=== PATIENT | male | born 1960 | race African-American/Black ===

== ENCOUNTER 2022-02-01 09:48 | Inpatient (IN) ==
[2022-02-01] MEDS ORDERED: ONDANSETRON INJ 2 MG/ML 2 ML VIAL IV STA (10:01)
[2022-02-01] MEDS ORDERED: SODIUM CHLORIDE 0.9% 1000ML 1,000 ML IV STA (10:01)
--- NOTE | 2022-02-01 10:10 | Emergency Department Note ---
Impression & Plan Diverticulitis, Abdominal pain, acute, right lower quadrant ED Provider Note NAME: GUILLERMINA [id number] ADITI AGE: 61 SEX: M : 1960 ARRIVES VIA: Walk-In INFORMANT: Patient, ED PROVIDER(S): Srinivasa Coreas DO CHIEF COMPLAINT: Abdominal pain HPI: The patient is a 61-year-old male who presented to the emergency department for an evaluation of abdominal pain. The patient states that he started having symptoms approximately 3 days ago. He did have 1 episode of loose bowel movement last evening. He denies having any black or bloody bowel moods. He states the pain initially started in his epigastric region. He states the pain is now lower in his abdomen especially on the right side. He has had no fever. He has had no trauma. He denies having any exposures to any foodborne illnesses but states he did have a sausage recently but is unsure if anyone else got sick eating. The patient has been taking his usual medications that he takes for diabetes. He does have a history of cholecystectomy but still has his appendix. He denies having any chest pain or difficulty breathing. ROS: See above HPI for pertinent positives & negatives. A total of 10 systems reviewed and were otherwise negative. PAST MEDICAL HISTORY: See Below PAST SURGICAL HISTORY: See Below FAMILY HISTORY: See Below SOCIAL HISTORY: See Below HOME MEDICATIONS: See Below ALLERGIES: See Below VITALS: See Below PHYSICAL EXAMINATION: GENERAL: The patient is awake and alert. He appears to be uncomfortable. EYES: The conjunctivae are clear. The pupils are round and reactive. EARS, NOSE, MOUTH AND THROAT: The nose is without any evidence of any deformity. NECK: The neck is nontender and supple. RESPIRATORY: Normal respiratory effort is noted there is no evidence of wheezing rhonchi or rales CARDIOVASCULAR: Regular rate and rhythm noted there no murmurs rubs or gallops normal S1 normal S2. GASTROINTESTINAL: The abdomen was soft and mildly distended. There is right lower quadrant tenderness to palpation. There is mild guarding in the right lower quadrant. MUSCULOSKELETAL/EXTREMITIES: There is no evidence of gross deformity full range of motion is noted in the hips and shoulders. SKIN: There is no obvious evidence of any rash. There are no petechiae, pallor or cyanosis noted. NEUROLOGIC: Patient is awake alert and oriented x3. MEDICAL DECISION MAKING: Patient is a 61-year-old male who presented to the emergency department for an evaluation of right lower quadrant abdominal pain. Initially I thought the patient's condition could be consistent with diverticulitis or possibly appendicitis. Further laboratory and radiographic studies were obtained. The patient was treated with IV fluids and IV pain medication. He was also given IV antibiotics for presumed diverticulitis noted on CT. I discussed the patient's condition with the on-call general surgical group as well as the on-call [facility] hospitalist group. They have agreed to evaluate the patient in the emergency department for further management and disposition. Triage Nursing notes reviewed. Prior medical records reviewed Vital Signs: reviewed and remarkable for elevated blood pressure Differential diagnosis: Appendicitis, testicular torsion, infections, diverticulitis, UTI, obstruction, mesenteric ischemia, aortic pathology, inflammatory bowel disease, renal colic, PUD, pancreatitis, biliary pathology, hernia, volvulus, constipation, as well as other pathologies. ER treatment provided: See below Diagnostics interpreted by me: ECG: EKG was obtained in the emergency department. My interpretation is normal sinus rhythm at 75 bpm. There is no ectopy. There is no acute ST segment abnormalities noted. No previous tracing was available. Cardiac Monitoring: An order was placed for continuous cardiac monitoring. The monitor shows a rate of 72 bpm with sinus rhythm Laboratory studies: As stated above and show below. Imaging studies: See below Consultation(s): I discussed this case with Jessica who is on for general surgery. I discussed this case with Ronna who is covering for the [facility] hospitalist group. Past Med/Surg History Medical History Diabetes Hyperlipidemia Hypertension Surgical History History of cholecystectomy Family History Other Family history non-contributory Social History Smoking Status: Former smoker Feels Safe at Home: Yes Allergies Allergies Allergy/AdvReac Type Severity Reaction Status Date / Time No Known Allergies Allergy Unverified 02/01/22 11:33 Home Meds Home Medications Medication Instructions Recorded Confirmed aspirin 81 mg tablet,delayed 81 mg PO DAILY 02/01/22 02/01/22 release atorvastatin 20 mg tablet 20 mg PO HS 02/01/22 02/01/22 calcium polycarbophil 625 mg 1,250 mg PO BID 02/01/22 02/01/22 tablet (Fiber-Lax) glyburide 2.5 mg tablet 2.5 mg PO BID 02/01/22 02/01/22 glyburide 5 mg tablet 5 mg PO BID 02/01/22 02/01/22 lisinopril 20 mg tablet 20 mg PO DAILY 02/01/22 02/01/22 Results & Data (ED) Vital Signs Vital Signs - 24 hr 02/01/22 09:51 02/01/22 10:30 02/01/22 11:22 Temperature 36.8 C Temperature Source Temporal Artery Scan Pulse Rate 77 75 Pulse Rate [Finger] 77 Respiratory Rate 18 18 18 Respiratory Effort / Characteristics Non-Labored Respiratory Depth Normal Blood Pressure [Right Arm] 163/102 H Blood Pressure Mean [Right Arm] 122 Blood Pressure Position [Right Arm] Semi-fowlers Pulse Oximetry 96 95 Oxygen Delivery Method Room Air Room Air Sepsis Recent Fever Within 48 Hours No Sepsis New/Unexplained Change in Mental Status No Sepsis Action Taken by Nursing No Action Required 02/01/22 13:19 02/01/22 14:36 02/01/22 15:04 Temperature Temperature Source Pulse Rate Pulse Rate [Finger] 77 73 72 Respiratory Rate 18 18 16 Respiratory Effort / Characteristics Non-Labored Respiratory Depth Normal Blood Pressure [Right Arm] 141/112 H 145/95 H 147/95 H Blood Pressure Mean [Right Arm] 121 111 112 Blood Pressure Position [Right Arm] Semi-fowlers Pulse Oximetry 95 95 97 Oxygen Delivery Method Room Air Room Air Room Air Sepsis Recent Fever Within 48 Hours Sepsis New/Unexplained Change in Mental Status Sepsis Action Taken by [facility] Medications Current Medication List: was personally reviewed by me Laboratory Data Attestation: I reviewed the patient's lab results. Result diagrams: 02/01/22 10:15 02/01/22 10:15 Lab Results 02/01/22 02/01/22 02/01/22 Range/Units 10:15 10:15 10:18 WBC 11.26 H (4.8-10.8) K/ul RBC 5.47 (4.63-6.08) M/uL Hgb 16.1 (14.0-18.0) g/dl POC Hgb 16.7 (14.0-18.0) g/dl Hct 47.6 (40.1-51.0) % POC Hct 49 (42-52) % MCV 87.0 (80.0-100.0) fL MCH 29.4 (25.0-34.0) pg MCHC 33.8 (32.0-36.0) g/dL RDW Std Deviation 38.8 (36.4-46.3) fL RDW Coeff of Isabella 12.3 (11.5-14.5) % Plt Count 239 (130-400) K/uL MPV 10.4 (9.4-12.4) fL Immature Gran % (Auto) 0.4 % Neut % (Auto) 79.9 % Lymph % (Auto) 9.9 % Gilmer % (Auto) 9.0 % Eos % (Auto) 0.5 % Baso % (Auto) 0.3 % Neut # (Auto) 9.01 H (1.4-6.5) K/uL Lymph # (Auto) 1.11 L (1.2-3.4) K/uL Gilmer # (Auto) 1.01 H (0.24-0.82) K/uL Eos # (Auto) 0.06 (0-0.50) K/uL Baso # (Auto) 0.03 (0-0.2) K/uL Immature Gran # (Auto) 0.04 H (0.00-0.02) K/uL POC Sodium 141 (135-144) mmol/L Sodium 140 (136-145) mmol/L POC Potassium 3.7 (3.3-5.0) mmol/L Potassium 3.7 (3.5-5.1) mmol/L POC Chloride 102 (101-112) mmol/L Chloride 104 (98-107) mmol/L Carbon Dioxide 28 (21-32) mmol/L POC Total CO2 27 (24-31) mmol/L Anion Gap 8 (3-11) POC Anion Gap 17.0 (16-25) mmol/L POC BUN 10 (7-18) mg/dl BUN 11 (6-23) mg/dl Creatinine 1.01 (0.6-1.4) mg/dl POC Creatinine 1.0 (0.6-1.3) mg/dl Est Cr Clr Drug Dosing 72.4 ml/min Est GFR ( Amer) 91.3 ml/min Est GFR (Non-Af Amer) 78.8 ml/min BUN/Creatinine Ratio 10.9 (10-20) Glucose 163 H (70-99(Fasting)) mg/dl POC Glucose (other) 172 H (70-99) mg/dl Calcium 9.6 (8.5-10.1) mg/dl POC Ioniz Calcium [place] 1.20 (1.12-1.32) mmol/l Total Bilirubin 0.9 (0.2-1.0) mg/dl AST 12 L (13-39) U/L ALT 10 (7-52) U/L Alkaline Phosphatase 115 H (34-104) U/L Troponin I High Sens 6.7 (0-20) pg/ml Total Protein 7.8 (6.0-8.3) gm/dl Albumin 4.4 (3.4-5.0) gm/dl Globulin 3.4 (2.5-4.0) gm/dl Albumin/Globulin Ratio 1.3 (0.9-2) Lipase 4 L (11-82) U/L Urine Color Urine Appearance (Clear) Urine pH (4.5-7.5) Ur Specific [place] (1.000-1.030) Urine Protein (Negative) Urine Glucose (UA) (Negative) Urine Ketones (Negative) Urine Blood (Negative) Urine Nitrite (Negative) Urine Bilirubin (Negative) Urine Urobilinogen (Negative) Ur Leukocyte Esterase (Negative) SARS-CoV-2, RNA, NAAT (NEGATIVE) 02/01/22 02/01/22 Range/Units 11:14 14:10 WBC (4.8-10.8) K/ul RBC (4.63-6.08) M/uL Hgb (14.0-18.0) g/dl POC Hgb (14.0-18.0) g/dl Hct (40.1-51.0) % POC Hct (42-52) % MCV (80.0-100.0) fL MCH (25.0-34.0) pg MCHC (32.0-36.0) g/dL RDW Std Deviation (36.4-46.3) fL RDW Coeff of Isabella (11.5-14.5) % Plt Count (130-400) K/uL MPV (9.4-12.4) fL Immature Gran % (Auto) % Neut % (Auto) % Lymph % (Auto) % Gilmer % (Auto) % Eos % (Auto) % Baso % (Auto) % Neut # (Auto) (1.4-6.5) K/uL Lymph # (Auto) (1.2-3.4) K/uL Gilmer # (Auto) (0.24-0.82) K/uL Eos # (Auto) (0-0.50) K/uL Baso # (Auto) (0-0.2) K/uL Immature Gran # (Auto) (0.00-0.02) K/uL POC Sodium (135-144) mmol/L Sodium (136-145) mmol/L POC Potassium (3.3-5.0) mmol/L Potassium (3.5-5.1) mmol/L POC Chloride (101-112) mmol/L Chloride (98-107) mmol/L Carbon Dioxide (21-32) mmol/L POC Total CO2 (24-31) mmol/L Anion Gap (3-11) POC Anion Gap (16-25) mmol/L POC BUN (7-18) mg/dl BUN (6-23) mg/dl Creatinine (0.6-1.4) mg/dl POC Creatinine (0.6-1.3) mg/dl Est Cr Clr Drug Dosing ml/min Est GFR ( Amer) ml/min Est GFR (Non-Af Amer) ml/min BUN/Creatinine Ratio (10-20) Glucose (70-99(Fasting)) mg/dl POC Glucose (other) (70-99) mg/dl Calcium (8.5-10.1) mg/dl POC Ioniz Calcium [place] (1.12-1.32) mmol/l Total Bilirubin (0.2-1.0) mg/dl AST (13-39) U/L ALT (7-52) U/L Alkaline Phosphatase (34-104) U/L Troponin I High Sens (0-20) pg/ml Total Protein (6.0-8.3) gm/dl Albumin (3.4-5.0) gm/dl Globulin (2.5-4.0) gm/dl Albumin/Globulin Ratio (0.9-2) Lipase (11-82) U/L Urine Color Yellow Urine Appearance Clear (Clear) Urine pH 6.0 (4.5-7.5) Ur Specific [place] > 1.045 H (1.000-1.030) Urine Protein Negative (Negative) Urine Glucose (UA) Trace H (Negative) Urine Ketones Trace H (Negative) Urine Blood Negative (Negative) Urine Nitrite Negative (Negative) Urine Bilirubin Negative (Negative) Urine Urobilinogen Negative (Negative) Ur Leukocyte Esterase Negative (Negative) SARS-CoV-2, RNA, NAAT NEGATIVE (NEGATIVE) Administered Medications Morphine Sulfate (Morphine Sulfate 4 Mg/Ml 1 Ml Carp\Vial) 4 mg IV Q15M PRN PRN Reason: Pain Stop: 02/15/22 10:00 Last Admin: 02/01/22 11:21 Dose: 4 mg Documented By: Admin: 02/01/22 10:23 Dose: 4 mg Documented By: ALIRIO Discontinued Medications Acetaminophen (Acetaminophen 1000 Mg/100 Ml Iv) 1,000 mg IV NOW STA Stop: 02/01/22 12:49 Last Admin: 02/01/22 13:20 Dose: 1,000 mg Documented By: ALIRIO Sodium Chloride (Nss 1000ml) 1,000 mls @ 999 mls/hr IV .Q1H1M STA Stop: 02/01/22 11:01 Last Infusion: 02/01/22 11:34 Dose: 0 mls/hr Documented By: Admin: 02/01/22 10:24 Dose: 999 mls/hr Documented By: ALIRIO Piperacillin Sod/Tazobactam Sod (Zosyn) 4.5 gm in 120 mls @ 240 mls/hr IV NOW ONE Stop: 02/01/22 12:15 Last Infusion: 02/01/22 12:47 Dose: 0 mls/hr Documented By: Admin: 02/01/22 12:12 Dose: 240 mls/hr Documented By: ALIRIO Ioversol (Optiray 320 100ml) 90 ml IV ONCE ONE Stop: 02/01/22 10:51 Last Admin: 02/01/22 10:41 Dose: 90 ml Documented By: DOTTIE Ondansetron HCl (Ondansetron Inj 2 Mg/Ml 2 Ml Vial) 4 mg IV NOW STA Stop: 02/01/22 10:02 Last Admin: 02/01/22 10:24 Dose: 4 mg Documented By: TRH Imaging Data Radiologist's Impression: Abdomen/Pelvis CT 02/01/22 10:01 CT abd pelvis IV con only CLINICAL HISTORY: RLQ pain. 3 days of abdominal pain. Loose bowel movement. TECHNIQUE: Helical axial images of the abdomen and pelvis were obtained and displayed. Automated dose lowering techniques and/or adjustment according to patient size were utilized for this exam. This exam was performed with intravenous contrast. CT DOSE: 376.44 mGycm COMPARISON: None available at the time of this dictation. FINDINGS: Lower chest: No acute abnormality Liver: Unremarkable. No focal lesions are seen. Gallbladder and biliary tree: Patient is status post cholecystectomy. Physiologic prominence of the biliary ducts is noted. Pancreas: Unremarkable, no focal lesions. Spleen: Unremarkable. Adrenals: Unremarkable. Kidneys and ureters: There is a cyst in the right kidney. Bladder: Unremarkable. Reproductive organs: Prostatic calcifications are seen which may represent prior hemorrhage or granulomatous disease. Bowel: Diverticulosis is seen without evidence of diverticulitis. Marked wall thickening and surrounding fat stranding is seen in the hepatic flexure in a short segment. No pneumoperitoneum is seen. There is a focal stool/air flexion protruding from the anteromedial aspect of the lesion. There are adjacent fluid density lesions which appear intraluminal. Lymph nodes Retroperitoneal: Unremarkable. Pelvic: Unremarkable. Mesenteric: Unremarkable. Peritoneum: Mild fat stranding is seen about the right upper quadrant. No kirby dence of pneumoperitoneum or discrete fluid collections. Vessels: Unremarkable. Abdominal wall: Unremarkable. Bones: Unremarkable. IMPRESSION: Hepatic flexure wall thickening and fat stranding are suggestive of acute diverticulitis without evidence of perforation. Given the degree of wall thickening, however, follow-up colonoscopy is recommended to exclude underlying carcinoma. ACT 112: Negative or not required by law. Electronically signed by: Ruy Meyer M.D. 02/01/2022 11:38 AM Discharge Plan Visit Data Chief Complaint: Abdominal Pain Stated Complaint: ABDOMINAL PAIN ED Provider: Srinivasa Coreas Discharge Problem: Diverticulitis, Abdominal pain, acute, right lower quadrant Patient Disposition: Being Evaluated by Hospitalist Forms Stand Alone Forms: My [facility] [employer] Prescriptions Prescriptions: No Action atorvastatin 20 mg Tablet 20 mg PO HS glyburide 5 mg Tablet 5 mg PO BID glyburide 2.5 mg Tablet 2.5 mg PO BID Rx Instructions: take 1 tab twice a day with 5mg for a total of 7.5mg twice per day lisinopril 20 mg Tablet 20 mg PO DAILY aspirin [Aspirin Low-Strength] 81 mg Tablet,Delayed Release (Dr/Ec) 81 mg PO DAILY calcium polycarbophil [Fiber-Lax] 625 mg Tablet 1,250 mg PO BID Referrals Referrals: Heaven LINDSEY [Primary Care Provider] -
[2022-02-01] MEDS: MoRPHine SULFATE 4 MG/ML 1 ML CARP\\VIAL IV PRN ×2 (10:23→11:21)
[2022-02-01 10:30] LABS: iSTAT Hemoglobin 16.7 g/dl (14.0-18.0); iSTAT Ionized Calcium 1.2 mmol/l (1.12-1.32); iSTAT Potassium 3.7 mmol/L (3.3-5.0)
[2022-02-01 10:32] LABS: Basophils # (auto) 0.03 K/uL (0-0.2); Basophils % (auto) 0.3 %; Eosinophils # (auto) 0.06 K/uL (0-0.50); Eosinophils % (auto) 0.5 %; Hematocrit (blood only) 47.6 % (40.1-51.0); Hemoglobin 16.1 g/dl (14.0-18.0); Immature Granulocytes # (auto) 0.04 K/uL (0.00-0.02); Immature Granulocytes % (auto) 0.4 %; Lymphocytes # (auto) 1.11 K/uL (1.2-3.4); Lymphocytes % (auto) 9.9 %; Mean Corpuscular Hemoglobin 29.4 pg (25.0-34.0); Mean Corpuscular Hgb Conc 33.8 g/dL (32.0-36.0); Mean Platelet Volume 10.4 fL (9.4-12.4); Monocytes # (auto) 1.01 K/uL (0.24-0.82); Neutrophils # (auto) 9.01 K/uL (1.4-6.5); Neutrophils % (auto) 79.9 %; Platelet Count 239 K/uL (130-400); RDW Coefficient of Variation 12.3 % (11.5-14.5); RDW Standard Deviation 38.8 fL (36.4-46.3); Red Blood Count 5.47 M/uL (4.63-6.08); White Blood Count 11.26 K/ul (4.8-10.8)
[2022-02-01] MEDS ORDERED: OPTIRAY 320 100ml IV ONE (10:50)
[2022-02-01 10:59] LABS: Troponin I High Sensitivity 6.7 pg/ml (0-20)
[2022-02-01 11:03] LABS: Albumin Globulin Ratio 1.3 (0.9-2); Albumin Level 4.4 gm/dl (3.4-5.0); BUN Creatinine Ratio 10.9 (10-20); Bilirubin,Total 0.9 mg/dl (0.2-1.0); Calcium 9.6 mg/dl (8.5-10.1); Creatinine Clr Calc Pharmacy 72.4 ml/min; Est GFR (African American) 91.3 ml/min; Est GFR (Non-African American) 78.8 ml/min; Globulin 3.4 gm/dl (2.5-4.0); Potassium 3.7 mmol/L (3.5-5.1); Total Protein 7.8 gm/dl (6.0-8.3)
--- NOTE | 2022-02-01 11:41 | CT Scan Report ---
CT abd pelvis IV con only CLINICAL HISTORY: RLQ pain. 3 days of abdominal pain. Loose bowel movement. TECHNIQUE: Helical axial images of the abdomen and pelvis were obtained and displayed. Automated dose lowering techniques and/or adjustment according to patient size were utilized for this exam. This e xam was performed with intravenous contrast. CT DOSE: 376.44 mGycm COMPARISON: None available at the time of this dictation. FINDINGS: Lower chest: No acute abnormality Liver: Unremarkable. No focal lesions are seen. Gallbladder and biliary tree: Patient is status post cholecystectomy. Physiologic prominence of the b iliary ducts is noted. Pancreas: Unremarkable, no focal lesions. Spleen: Unremarkable. Adrenals: Unremarkable. Kidneys and ureters: There is a cyst in the right kidney. Bladder: Unremarkable. Reproductive organs: Prostatic calcifications are seen which may represent prior hemorrhage or granul omatous disease. Bowel: Diverticulosis is seen without evidence of diverticulitis. Marked wall thickening and surround ing fat stranding is seen in the hepatic flexure in a short segment. No pneumoperitoneum is seen. The re is a focal stool/air flexion protruding from the anteromedial aspect of the lesion. There are karen cent fluid density lesions which appear intraluminal. Lymph nodes Retroperitoneal: Unremarkable. Pelvic: Unremarkable. Mesenteric: Unremarkable. Peritoneum: Mild fat stranding is seen about the right upper quadrant. No evidence of pneumoperitoneu m or discrete fluid collections. Vessels: Unremarkable. Abdominal wall: Unremarkable. Bones: Unremarkable. IMPRESSION: Hepatic flexure wall thickening and fat stranding are suggestive of acute diverticulitis without evid ence of perforation. Given the degree of wall thickening, however, follow-up colonoscopy is recommend ed to exclude underlying carcinoma. ACT 112: Negative or not required by law. Electronically signed by: Ruy Meyer M.D. 02/01/2022 11:38 AM
[2022-02-01] MEDS ORDERED: PIPERACILLIN/TAZOBACTAM 4.5 GM/120 ML BAG IV ONE (11:46)
--- NOTE | 2022-02-01 11:55 | History & Physical Report ---
Date of Service February 01, 2022 Assessment & Plan (1) Diverticulitis: Plan: - Elevated WBC with CT A/P showing hepatic flexure thickening and intraluminal fluid, possible phlegmon, but without evidence of bowel perforation. - Will admit for IVF and IV abx, as needed IV analgesics and antiemetics ordered. - General surgery consulted to evaluate patient in ED, recommending GI consult given concern for possible phlegmon. (2) DM2 (diabetes mellitus, type 2): Plan: - Hold glyburide, place on SSI with accucheks ACHS/q6h while NPO. - A1c in AM. (3) Hypertension: Plan: - Takes 20 mg lisinopril daily, did take today's dose. Is hypertensive 163/102, however currently with 7/10 pain. - 0.625 mg IV Vasotec Q6h prn for SBP > 160 in setting of adequately controlled pain. (4) Hyperlipidemia: Plan: - On atorvastatin 40 mg at night, hold for now due to n.p.o. status, may resume when patient tolerating p.o. intake. Plan - Med/surg OBS. - SCDs for VTE ppx. - Full Code. History of Present Illness Chief Complaint: abdominal pain, diarrhea x 2 days Primary Care Provider: CÉSAR Higgins Lakepooja Jordy Mercer is a 61-year-old male with a past medical history significant for hypertension, hyperlipidemia, and diabetes who presents today with abdominal pain. 2 days ago, he consumed spicy sausage and 2 hours later developed a knot- like pain in his upper central abdomen. Over the past 2 days, as it become more severe and has moved into his lower right abdomen. He had an episode of nonbloody, watery stool last evening and had felt very warm this morning, however denies fevers/chills, nausea, vomiting, constipation, melena, hematochezia. Pain is throbbing and worse with p.o. intake, specifically noting that it got worse after he took his blood pressure medication this morning, also worsened by IV morphine given in ED, made it feel like his abdomen was "on fire ". He had his gallbladder removed years ago, otherwise no surgeries, no history of diverticulitis or GI cancers. No one else at the alf who ate the present appears to be ill. In ED, is an elevated white blood cell count, elevated blood sugar, otherwise labs largely unremarkable. CT A/P shows thickening of the bowel at the hepatic flexure suggestive of diverticulitis. There is concern for possible phlegmon, but no evidence of pneumoperitoneum or perforation. Allergies Allergy/AdvReac Type Severity Reaction Status Date / Time No Known Allergies Allergy Unverified 02/01/22 11:33 Home Medications Medication Instructions Recorded Confirmed Type aspirin 81 mg tablet,delayed 81 mg PO DAILY 02/01/22 02/01/22 History release atorvastatin 20 mg tablet 20 mg PO HS 02/01/22 02/01/22 History calcium polycarbophil 625 mg 1,250 mg PO BID 02/01/22 02/01/22 History tablet (Fiber-Lax) glyburide 2.5 mg tablet 2.5 mg PO BID 02/01/22 02/01/22 History glyburide 5 mg tablet 5 mg PO BID 02/01/22 02/01/22 History lisinopril 20 mg tablet 20 mg PO DAILY 02/01/22 02/01/22 History Past Med/Surg History Medical History Diabetes Hyperlipidemia Hypertension Surgical History History of cholecystectomy Family History Other Family history non-contributory Social History Smoking Status: Former smoker Feels Safe at Home: Yes Review of Systems Review of Systems: Constitutional: felt very warm this AM but no objective fever/chills, weakness, fatigue, myalgias, anorexia, night sweats Eyes: No diplopia, no worsening or blurred vision ENT: normal hearing, no trouble swallowing Respiratory: No cough, sputum, dyspnea at rest or on exertion Cardiovascular: No chest pain, tightness or palpitations Abdomen: Central and right-sided abdominal pain x2 days with nonbloody diarrhea last evening; no nausea, vomiting, constipation, melena, or hematochezia : Denies dysuria, hematuria, increased urgency/frequency, urinary retention Musculoskeletal: No joint pain, calf pain, swelling Neurologic: No weakness, numbness/tingling, or balance problems Psychiatric: No anxiety or depression Skin: No rash or itch Physical Exam Physical Exam: General: awake, alert, no apparent distress Head: Normocephalic, atraumatic ENT: PERRL, EOMI, no pharyngeal exudate, mucous membranes moist Chest: Clear to auscultation, on room air, no adventitious breath sounds Cardiac: Regular rate and rhythm, no murmur, no JVD, normal peripheral pulses, good capillary refill Abdominal: Central, right-sided abdominal pain, with mild rebound pain when pushing in LUQ; NABS x4 quadrants Extremities: Normal inspection, no peripheral edema or erythema, calfs nontender to palpation Psych: Normal mood and affect Neuro: AAO x 3, strength intact bilaterally and rated 5/5, no motor deficits, speech is clear, no peripheral sensory deficits Skin: no rash or erythema Results & Data Results & Data ([facility] [place]) Vital Signs (Past 12 Hours) Vital Signs Temp Pulse Pulse Resp BP Pulse Ox O2 Del Method 02/01/22 11:22 77 18 163/102 H 95 02/01/22 10:30 75 18 96 Room Air 02/01/22 09:51 36.8 C 77 18 Room Air Laboratory Results Abnormal lab results 02/01/22 02/01/22 02/01/22 Range/Units 10:15 10:15 10:18 WBC 11.26 H (4.8-10.8) K/ul Neut # (Auto) 9.01 H (1.4-6.5) K/uL Lymph # (Auto) 1.11 L (1.2-3.4) K/uL [facility] # (Auto) 1.01 H (0.24-0.82) K/uL Immature Gran # (Auto) 0.04 H (0.00-0.02) K/uL Glucose 163 H (70-99(Fasting)) mg/dl POC Glucose (other) 172 H (70-99) mg/dl AST 12 L (13-39) U/L Alkaline Phosphatase 115 H (34-104) U/L Lipase 4 L (11-82) U/L Diagnostic Findings Abdomen/Pelvis CT 02/01/22 10:01 CT abd pelvis IV con only CLINICAL HISTORY: RLQ pain. 3 days of abdominal pain. Loose bowel movement. TECHNIQUE: Helical axial images of the abdomen and pelvis were obtained and displayed. Automated dose lowering techniques and/or adjustment according to patient size were utilized for this exam. This exam was performed with intravenous contrast. CT DOSE: 376.44 mGycm COMPARISON: None available at the time of this dictation. FINDINGS: Lower chest: No acute abnormality Liver: Unremarkable. No focal lesions are seen. Gallbladder and biliary tree: Patient is status post cholecystectomy. Physiologic prominence of the biliary ducts is noted. Pancreas: Unremarkable, no focal lesions. Spleen: Unremarkable. Adrenals: Unremarkable. Kidneys and ureters: There is a cyst in the right kidney. Bladder: Unremarkable. Reproductive organs: Prostatic calcifications are seen which may represent prior hemorrhage or granulomatous disease. Bowel: Diverticulosis is seen without evidence of diverticulitis. Marked wall thickening and surrounding fat stranding is seen in the hepatic flexure in a short segment. No pneumoperitoneum is seen. There is a focal stool/air flexion protruding from the anteromedial aspect of the lesion. There are adjacent fluid density lesions which appear intraluminal. Lymph nodes Retroperitoneal: Unremarkable. Pelvic: Unremarkable. Mesenteric: Unremarkable. Peritoneum: Mild fat stranding is seen about the right upper quadrant. No evidence of pneumoperitoneum or discrete fluid collections. Vessels: Unremarkable. Abdominal wall: Unremarkable. Bones: Unremarkable. IMPRESSION: Hepatic flexure wall thickening and fat stranding are suggestive of acute diverticulitis without evidence of perforation. Given the degree of wall thickening, however, follow-up colonoscopy is recommended to exclude underlying carcinoma. ACT 112: Negative or not required by law. Electronically signed by: Ruy Meyer M.D. 02/01/2022 11:38 AM ECG Additional Comments: Normal sinus rhythm Normal ECG When compared with ECG of 01-FEB-2022 10:23, (unconfirmed) Sinus rhythm has replaced Ectopic atrial rhythm Questionable change in QRS axis T wave inversion no longer evident in Inferior leads. Code Status & VTE Plan Code Status Full Code. Supervising Physician Co-Signing Physician Notes I personally saw and examined the patient. I verified all reed points and agree with Ronna Rojo PA-C with the following exceptions and/or additions: 61 year old male admission for 2 days of right-sided abdominal pain. No fevers or chills. Diverticulitis in hepatic flexure noted on CT with associated leukocytosis. He reports much improved pain since coming to the emergency room. O/E Right lower quadrant abdominal pain with guarding but without rebound tenderness. HS1+2, no murmurs, Chest CTAB. A/P Acute hepatic flexure diverticulitis -admission recommended by surgery. N.p.o., IV Zosyn, IV fluids. Follow-up colonoscopy in 4-6 weeks. PG Care Time/CCT Total # of Minutes Spent Total Time Spent with Patient: Total time spent is greater than 50% in coordination of care (as documented) at patient's floor/unit and/or counseling patient: Coding Level of Care Code 39529 Initial Inpt Care Lvl 2 Diagnoses Diverticulitis K57.92 DM2 (diabetes mellitus, type 2) E11.9 Hypertension I10 Hyperlipidemia E78.5
[2022-02-01] MEDS ORDERED: ACETAMINOPHEN 1000 MG/100 ML IV IV STA (12:48)
--- NOTE | 2022-02-01 12:59 | Electrocardiogram Report ---
Test Reason : Blood Pressure : / mmHG Vent. Rate : 075 BPM Atrial Rate : 075 BPM P-R Int : 164 ms QRS Dur : 080 ms QT Int : 382 ms P-R-T Axes : 059 014 033 degrees QTc Int : 426 ms Normal sinus rhythm Normal ECG When compared with ECG of 01-FEB-2022 10:23, (unconfirmed) Sinus rhythm has replaced Ectopic atrial rhythm Questionable change in QRS axis T wave inversion no longer evident in Inferior leads Confirmed by Srinivasa Tobin ([id number]) on 02/01/2022 12:59:01 PM Referred By: Confirmed By:Srinivasa Tobin
--- NOTE | 2022-02-01 13:14 | Surgery Consultation ---
Date of Consultation February 01, 2022 Assessment & Plan (1) Diverticulitis: Diverticulitis vs colitis/microperf afebrile, WBC 11,000 keep NPO, on Zosyn no indication for surgery at this time but will follow closely will need eventual colonoscopy As above. Patient feeling slightly better already. This is his first known episode. No urgent or emergent indication for surgical intervention. Keep n.p.o. and IV antibiotics. We will continue to follow along closely. History of Present Illness History of Present Illness 61 y/o diabetic male inmate developed epigastric pain 2 days ago after eating sausage sandwich. Yesterday pain increased and localized more to the right side. He ate soup and had loose stool last evening. This morning had continued pain, felt warm, and was brought to the ED for evaluation. Had lap bay in the past, colonoscopy about 10 years ago for screening. Allergies Allergy/AdvReac Type Severity Reaction Status Date / Time No Known Allergies Allergy Unverified 02/01/22 11:33 Home Medications Medication Instructions Recorded Confirmed Type aspirin 81 mg tablet,delayed 81 mg PO DAILY 02/01/22 02/01/22 History release atorvastatin 20 mg tablet 20 mg PO HS 02/01/22 02/01/22 History calcium polycarbophil 625 mg 1,250 mg PO BID 02/01/22 02/01/22 History tablet (Fiber-Lax) glyburide 2.5 mg tablet 2.5 mg PO BID 02/01/22 02/01/22 History glyburide 5 mg tablet 5 mg PO BID 02/01/22 02/01/22 History lisinopril 20 mg tablet 20 mg PO DAILY 02/01/22 02/01/22 History Patient History Medical History Diabetes Hyperlipidemia Hypertension Surgical History History of cholecystectomy Family History Other Family history non-contributory Social History Smoking Status: Former smoker Feels Safe at Home: Yes Review of Systems Constitutional: + malaise; no fever, no chills, no anorexia and no weight loss Gastrointestinal: + abdominal pain and + diarrhea/loose stools; no bloating, no early satiety, no nausea, no vomiting, no change in bowel habits, no blood in stools and no melena Physical Exam Constitutional: WD/WN, vitals as above Respiratory: normal respiratory effort, lungs clear to auscultation Cardiovascular: RRR, no murmur, no edema Gastrointestinal (Abdomen): Inspection/Auscultation: abdomen normal to inspection and + abdominal surgical scar (laparoscopy); abdomen not distended Percussion/Palpation: + abdomen tender (RUQ>RLQ), + guarding (RUQ) and abdomen soft Skin: no rashes, warm and dry Results & Data ([facility]) Vital Signs (Past 12 Hours) Vital Signs Temp Pulse Pulse Resp BP Pulse Ox O2 Del Method 02/01/22 11:22 77 18 163/102 H 95 02/01/22 10:30 75 18 96 Room Air 02/01/22 09:51 36.8 C 77 18 Room Air PG Care Time/CCT Total # of Minutes Spent Total Time Spent with Patient: Total time spent is greater than 50% in coordination of care (as documented) at patient's floor/unit and/or counseling patient: Coding Level of Care Code 69415 Inpt Consult Level 4 Diagnoses Diverticulitis K57.92
[2022-02-01 14:27] LABS: Appearance Urine Clear (Clear); Bilirubin Urine Negative (Negative); Blood Urine Negative (Negative); Color Urine Yellow; Glucose Urine UA Trace (Negative); Ketones Urine Trace (Negative); Leukocyte Esterase Urine Negative (Negative); Nitrite Urine Negative (Negative); Protein Urine Negative (Negative); Specific Gravity Urine > 1.045 (1.000-1.030); Urobilinogen Urine Negative (Negative)
[2022-02-01] MEDS ORDERED: HYDROmorphone INJ 0.5 MG/0.5 ML SYR IV PRN ×2 (20:15)
[2022-02-01] MEDS ORDERED: GLUCAGON FOR INJ 1 MG VIAL SQ PRN (20:15)
[2022-02-01] MEDS ORDERED: ONDANSETRON INJ 2 MG/ML 2 ML VIAL IV PRN (20:15)
[2022-02-01] MEDS ORDERED: DEXTROSE 50% 50 ML SYRINGE IV PRN (20:15)
[2022-02-01] MEDS ORDERED: GLUCOSE 40% GEL 15 GM TUBE PO PRN (20:15)
[2022-02-01] MEDS ORDERED: DC ALL PREVIOUSLY ORDERED DIABETES MEDS ONE (20:15)
[2022-02-01] MEDS ORDERED: ENALAPRILAT 0.625 MG in SYRINGE 9.5 ML IV PRN (20:15)
[2022-02-01] MEDS ORDERED: POLYETHYLENE (MIRALAX) 17 GM PACK PO PRN (20:15)
[2022-02-01] MEDS ORDERED: GLUCOSE 10 TAB/TUBE PO PRN (20:15)
[2022-02-01] MEDS ORDERED: ACETAMINOPHEN 500 MG TAB PO PRN (20:15)
[2022-02-01] MEDS ORDERED: CARBOHYDRATES FOR HYPOGLYCEMIA PO PRN (20:15)
[2022-02-01] MEDS: LACTATED RINGER'S 1,000 ML IV SCH (20:30)
[2022-02-01] MEDS: INSULIN ASPART PER UNIT SC SCH (20:40)
[2022-02-01] MEDS: PIPERACILLIN/TAZOBACTAM 3.375 GM in DEXTROSE 5% 100 ML IV SCH (21:37)
[2022-02-02] MEDS: INSULIN ASPART PER UNIT SC SCH ×5 (01:08→23:47)
[2022-02-02] MEDS: LACTATED RINGER'S 1,000 ML IV SCH (04:45)
[2022-02-02] MEDS: PIPERACILLIN/TAZOBACTAM 3.375 GM in DEXTROSE 5% 100 ML IV SCH ×3 (04:52→21:24)
[2022-02-02 06:28] LABS: Basophils # (auto) 0.05 K/uL (0-0.2); Basophils % (auto) 0.5 %; Eosinophils # (auto) 0.21 K/uL (0-0.50); Eosinophils % (auto) 2.2 %; Hematocrit (blood only) 42.7 % (40.1-51.0); Hemoglobin 14.3 g/dl (14.0-18.0); Immature Granulocytes # (auto) 0.03 K/uL (0.00-0.02); Immature Granulocytes % (auto) 0.3 %; Lymphocytes # (auto) 1.85 K/uL (1.2-3.4); Lymphocytes % (auto) 19.4 %; Mean Corpuscular Hemoglobin 29.5 pg (25.0-34.0); Mean Corpuscular Hgb Conc 33.5 g/dL (32.0-36.0); Mean Corpuscular Volume 88.2 fL (80.0-100.0); Mean Platelet Volume 10.3 fL (9.4-12.4); Monocytes # (auto) 0.91 K/uL (0.24-0.82); Monocytes % (auto) 9.5 %; Neutrophils # (auto) 6.48 K/uL (1.4-6.5); Neutrophils % (auto) 68.1 %; Platelet Count 207 K/uL (130-400); RDW Coefficient of Variation 12.2 % (11.5-14.5); RDW Standard Deviation 39.8 fL (36.4-46.3); Red Blood Count 4.84 M/uL (4.63-6.08); White Blood Count 9.53 K/ul (4.8-10.8)
[2022-02-02 07:10] LABS: Estimated Average Glucose 148 mg/dl; Hemoglobin A1C 6.8 % (4.5-5.6)
[2022-02-02 07:17] LABS: BUN Creatinine Ratio 11.5 (10-20); Calcium 8.8 mg/dl (8.5-10.1); Creatinine Clr Calc Pharmacy 74.7 ml/min; Est GFR (African American) 97.1 ml/min; Est GFR (Non-African American) 83.8 ml/min; Magnesium 1.7 mg/dl (1.7-2.4); Potassium 3.5 mmol/L (3.5-5.1)
--- NOTE | 2022-02-02 08:56 | Gastrointestinal Consultation ---
Date of Consultation February 02, 2022 Assessment & Plan (1) Diverticulitis: 61 year old male with acute lower abd discomfort, loose stools and imaging concerning for hepatic flexure wall thickening. DDX discussed: infectious colitis, diverticulitis, ischemic colitis vs malignancy Given the acute presentation would suspected infectious or diverticulitis. Agree w/ IV ABX while admitted to complete full course of PO ABX at discharge. No GI contraindication for liquid diet but will defer to general surgery. When he is able to resume PO, would recommend low residue diet for 4 weeks. Will need OP colonoscopy no sooner than 4 weeks. Will sign off. Recall as needed. Thank you for allowing us to participate in the care of this patient. Please call with any acute changes, questions or concerns. Please see addendum below with additional recommendation from my supervising physician. Supervising Physician Co-Signing Physician Notes I performed a history and physical examination of the patient today, including specifically on physical exam - soft abdomen. I have discussed the patient's management with the advanced practitioner. Please refer to the nurse practitioner's note for the documented findings and plan of care. Likely acute diverticulitis. Treat with IV ABx. Consider clear liquid diet. Colonoscopy as OP in 4 weeks. Recall GI if needed. History of Present Illness Reason for Consultation: diverticulitis Requesting Physician: Molly Attending Physician: Ralph Barnes MD History of Present Illness 61 year old male with history of hypertension, hyperlipidemia and diabetes admitted through the ED w/ suspected diverticulitis. Pt was seen and evaluated, chart reviewed. Suggests that his symptoms started about 2/3 days ago. Notes this started with midline, upper abd pain, burning in sensation then migrated to his lower ABD. R>L. This has persisted and was associated with nonbloody loose stools. Today, he notes he is starting to feel better and suggests he had a formed stool last evening. Denies unintentional weight loss Denies chronic diarrhea Denies black or bloody stool Denies any family history of IBD Denies any family history of GI malignancy CTAP:Hepatic flexure wall thickening and fat stranding are suggestive of acute diverticulitis without evidence of perforation. Given the degree of wall thickening, however, follow-up colonoscopy is recommended to exclude underlying carcinoma. Allergies Allergy/AdvReac Type Severity Reaction Status Date / Time No Known Allergies Allergy Unverified 02/01/22 11:33 Home Medications Medication Instructions Recorded Confirmed Type aspirin 81 mg tablet,delayed 81 mg PO DAILY 02/01/22 02/01/22 History release atorvastatin 20 mg tablet 20 mg PO HS 02/01/22 02/01/22 History calcium polycarbophil 625 mg 1,250 mg PO BID 02/01/22 02/01/22 History tablet (Fiber-Lax) glyburide 2.5 mg tablet 2.5 mg PO BID 02/01/22 02/01/22 History glyburide 5 mg tablet 5 mg PO BID 02/01/22 02/01/22 History lisinopril 20 mg tablet 20 mg PO DAILY 02/01/22 02/01/22 History Patient History Medical History Diabetes Hyperlipidemia Hypertension Surgical History History of cholecystectomy Family History Other Family history non-contributory Social History Smoking Status: Former smoker Cigarettes Per Day: 10 cigarrettes per day.; Second Hand Exposure: No; Hx Alcohol Use: Yes Alcohol type: beer Hx Substance Use: No Preferred Language: Egyptian Communication Ability: Effective Carriage Setter Required: No Beliefs That Will Affect Care: None Current Living Situation: Other Current Living Situation Comment: [facility]. Feels Safe at Home: Yes Assistive Devices: None Review of Systems Review of Systems: All systems reviewed & are unremarkable except as noted in HPI & below Physical Exam Constitutional: WD/WN, vitals as above Respiratory: normal respiratory effort, lungs clear to auscultation Cardiovascular: Rate/Rhythm: regular rate Gastrointestinal (Abdomen): normal bowel sounds, soft, nontender, no hepatosplenomegaly Skin: no rashes, warm and dry Results & Data ([facility]) Vital Signs (Past 12 Hours) Vital Signs Temp Pulse Pulse Resp BP BP Pulse Ox 02/02/22 08:07 36.9 C 59 L 17 166/97 H 95 02/02/22 01:01 65 143/95 H 02/01/22 22:48 36.7 C 72 18 163/98 H 95 O2 Del Method 02/02/22 08:07 Room Air 02/02/22 01:01 02/01/22 22:48 Room Air Laboratory Results 02/02/22 02/02/22 02/02/22 Range/Units 06:01 06:01 06:01 WBC 9.53 (4.8-10.8) K/ul RBC 4.84 (4.63-6.08) M/uL Hgb 14.3 (14.0-18.0) g/dl POC Hgb (14.0-18.0) g/dl Hct 42.7 (40.1-51.0) % POC Hct (42-52) % MCV 88.2 (80.0-100.0) fL MCH 29.5 (25.0-34.0) pg MCHC 33.5 (32.0-36.0) g/dL RDW Std Deviation 39.8 (36.4-46.3) fL RDW Coeff of Isabella 12.2 (11.5-14.5) % Plt Count 207 (130-400) K/uL MPV 10.3 (9.4-12.4) fL Immature Gran % (Auto) 0.3 % Neut % (Auto) 68.1 % Lymph % (Auto) 19.4 % [place] % (Auto) 9.5 % Eos % (Auto) 2.2 % Baso % (Auto) 0.5 % Neut # (Auto) 6.48 (1.4-6.5) K/uL Lymph # (Auto) 1.85 (1.2-3.4) K/uL [place] # (Auto) 0.91 H (0.24-0.82) K/uL Eos # (Auto) 0.21 (0-0.50) K/uL Baso # (Auto) 0.05 (0-0.2) K/uL Immature Gran # (Auto) 0.03 H (0.00-0.02) K/uL POC Sodium (135-144) mmol/L Sodium 137 (136-145) mmol/L POC Potassium (3.3-5.0) mmol/L Potassium 3.5 (3.5-5.1) mmol/L POC Chloride (101-112) mmol/L Chloride 104 (98-107) mmol/L Carbon Dioxide 26 (21-32) mmol/L POC Total CO2 (24-31) mmol/L Anion Gap 7 (3-11) POC Anion Gap (16-25) mmol/L POC BUN (7-18) mg/dl BUN 11 (6-23) mg/dl Creatinine 0.96 (0.6-1.4) mg/dl POC Creatinine (0.6-1.3) mg/dl Est Cr Clr Drug Dosing 74.7 ml/min Est GFR ( Amer) 97.1 ml/min Est GFR (Non-Af Amer) 83.8 ml/min BUN/Creatinine Ratio 11.5 (10-20) Glucose 114 H (70-99(Fasting)) mg/dl POC Glucose (70-99) mg/dl POC Glucose (other) (70-99) mg/dl Estimat Average Glucose 148 mg/dl Hemoglobin A1c 6.8 H (4.5-5.6) % Calcium 8.8 (8.5-10.1) mg/dl POC Ioniz Calcium [place] (1.12-1.32) mmol/l Magnesium 1.7 (1.7-2.4) mg/dl Total Bilirubin (0.2-1.0) mg/dl AST (13-39) U/L ALT (7-52) U/L Alkaline Phosphatase (34-104) U/L Troponin I High Sens (0-20) pg/ml Total Protein (6.0-8.3) gm/dl Albumin (3.4-5.0) gm/dl Globulin (2.5-4.0) gm/dl Albumin/Globulin Ratio (0.9-2) Lipase (11-82) U/L Urine Color Urine Appearance (Clear) Urine pH (4.5-7.5) Ur Specific [place] (1.000-1.030) Urine Protein (Negative) Urine Glucose (UA) (Negative) Urine Ketones (Negative) Urine Blood (Negative) Urine Nitrite (Negative) Urine Bilirubin (Negative) Urine Urobilinogen (Negative) Ur Leukocyte Esterase (Negative) SARS-CoV-2, RNA, NAAT (NEGATIVE) 02/02/22 02/02/22 02/01/22 Range/Units 05:48 01:00 20:47 WBC (4.8-10.8) K/ul RBC (4.63-6.08) M/uL Hgb (14.0-18.0) g/dl POC Hgb (14.0-18.0) g/dl Hct (40.1-51.0) % POC Hct (42-52) % MCV (80.0-100.0) fL MCH (25.0-34.0) pg MCHC (32.0-36.0) g/dL RDW Std Deviation (36.4-46.3) fL RDW Coeff of Isabella (11.5-14.5) % Plt Count (130-400) K/uL MPV (9.4-12.4) fL Immature Gran % (Auto) % Neut % (Auto) % Lymph % (Auto) % [place] % (Auto) % Eos % (Auto) % Baso % (Auto) % Neut # (Auto) (1.4-6.5) K/uL Lymph # (Auto) (1.2-3.4) K/uL [place] # (Auto) (0.24-0.82) K/uL Eos # (Auto) (0-0.50) K/uL Baso # (Auto) (0-0.2) K/uL Immature Gran # (Auto) (0.00-0.02) K/uL POC Sodium (135-144) mmol/L Sodium (136-145) mmol/L POC Potassium (3.3-5.0) mmol/L Potassium (3.5-5.1) mmol/L POC Chloride (101-112) mmol/L Chloride (98-107) mmol/L Carbon Dioxide (21-32) mmol/L POC Total CO2 (24-31) mmol/L Anion Gap (3-11) POC Anion Gap (16-25) mmol/L POC BUN (7-18) mg/dl BUN (6-23) mg/dl Creatinine (0.6-1.4) mg/dl POC Creatinine (0.6-1.3) mg/dl Est Cr Clr Drug Dosing ml/min Est GFR ( Amer) ml/min Est GFR (Non-Af Amer) ml/min BUN/Creatinine Ratio (10-20) Glucose (70-99(Fasting)) mg/dl POC Glucose 103 H 84 84 (70-99) mg/dl POC Glucose (other) (70-99) mg/dl Estimat Average Glucose mg/dl Hemoglobin A1c (4.5-5.6) % Calcium (8.5-10.1) mg/dl POC Ioniz Calcium [place] (1.12-1.32) mmol/l Magnesium (1.7-2.4) mg/dl Total Bilirubin (0.2-1.0) mg/dl AST (13-39) U/L ALT (7-52) U/L Alkaline Phosphatase (34-104) U/L Troponin I High Sens (0-20) pg/ml Total Protein (6.0-8.3) gm/dl Albumin (3.4-5.0) gm/dl Globulin (2.5-4.0) gm/dl Albumin/Globulin Ratio (0.9-2) Lipase (11-82) U/L Urine Color Urine Appearance (Clear) Urine pH (4.5-7.5) Ur Specific [place] (1.000-1.030) Urine Protein (Negative) Urine Glucose (UA) (Negative) Urine Ketones (Negative) Urine Blood (Negative) Urine Nitrite (Negative) Urine Bilirubin (Negative) Urine Urobilinogen (Negative) Ur Leukocyte Esterase (Negative) SARS-CoV-2, RNA, NAAT (NEGATIVE) 02/01/22 02/01/22 02/01/22 Range/Units 14:10 11:14 10:18 WBC (4.8-10.8) K/ul RBC (4.63-6.08) M/uL Hgb (14.0-18.0) g/dl POC Hgb 16.7 (14.0-18.0) g/dl Hct (40.1-51.0) % POC Hct 49 (42-52) % MCV (80.0-100.0) fL MCH (25.0-34.0) pg MCHC (32.0-36.0) g/dL RDW Std Deviation (36.4-46.3) fL RDW Coeff of Isabella (11.5-14.5) % Plt Count (130-400) K/uL MPV (9.4-12.4) fL Immature Gran % (Auto) % Neut % (Auto) % Lymph % (Auto) % [place] % (Auto) % Eos % (Auto) % Baso % (Auto) % Neut # (Auto) (1.4-6.5) K/uL Lymph # (Auto) (1.2-3.4) K/uL [place] # (Auto) (0.24-0.82) K/uL Eos # (Auto) (0-0.50) K/uL Baso # (Auto) (0-0.2) K/uL Immature Gran # (Auto) (0.00-0.02) K/uL POC Sodium 141 (135-144) mmol/L Sodium (136-145) mmol/L POC Potassium 3.7 (3.3-5.0) mmol/L Potassium (3.5-5.1) mmol/L POC Chloride 102 (101-112) mmol/L Chloride (98-107) mmol/L Carbon Dioxide (21-32) mmol/L POC Total CO2 27 (24-31) mmol/L Anion Gap (3-11) POC Anion Gap 17.0 (16-25) mmol/L POC BUN 10 (7-18) mg/dl BUN (6-23) mg/dl Creatinine (0.6-1.4) mg/dl POC Creatinine 1.0 (0.6-1.3) mg/dl Est Cr Clr Drug Dosing ml/min Est GFR ( Amer) ml/min Est GFR (Non-Af Amer) ml/min BUN/Creatinine Ratio (10-20) Glucose (70-99(Fasting)) mg/dl POC Glucose (70-99) mg/dl POC Glucose (other) 172 H (70-99) mg/dl Estimat Average Glucose mg/dl Hemoglobin A1c (4.5-5.6) % Calcium (8.5-10.1) mg/dl POC Ioniz Calcium [place] 1.20 (1.12-1.32) mmol/l Magnesium (1.7-2.4) mg/dl Total Bilirubin (0.2-1.0) mg/dl AST (13-39) U/L ALT (7-52) U/L Alkaline Phosphatase (34-104) U/L Troponin I High Sens (0-20) pg/ml Total Protein (6.0-8.3) gm/dl Albumin (3.4-5.0) gm/dl Globulin (2.5-4.0) gm/dl Albumin/Globulin Ratio (0.9-2) Lipase (11-82) U/L Urine Color Yellow Urine Appearance Clear (Clear) Urine pH 6.0 (4.5-7.5) Ur Specific [place] > 1.045 H (1.000-1.030) Urine Protein Negative (Negative) Urine Glucose (UA) Trace H (Negative) Urine Ketones Trace H (Negative) Urine Blood Negative (Negative) Urine Nitrite Negative (Negative) Urine Bilirubin Negative (Negative) Urine Urobilinogen Negative (Negative) Ur Leukocyte Esterase Negative (Negative) SARS-CoV-2, RNA, NAAT NEGATIVE (NEGATIVE) 02/01/22 02/01/22 Range/Units 10:15 10:15 WBC 11.26 H (4.8-10.8) K/ul RBC 5.47 (4.63-6.08) M/uL Hgb 16.1 (14.0-18.0) g/dl POC Hgb (14.0-18.0) g/dl Hct 47.6 (40.1-51.0) % POC Hct (42-52) % MCV 87.0 (80.0-100.0) fL MCH 29.4 (25.0-34.0) pg MCHC 33.8 (32.0-36.0) g/dL RDW Std Deviation 38.8 (36.4-46.3) fL RDW Coeff of Isabella 12.3 (11.5-14.5) % Plt Count 239 (130-400) K/uL MPV 10.4 (9.4-12.4) fL Immature Gran % (Auto) 0.4 % Neut % (Auto) 79.9 % Lymph % (Auto) 9.9 % [place] % (Auto) 9.0 % Eos % (Auto) 0.5 % Baso % (Auto) 0.3 % Neut # (Auto) 9.01 H (1.4-6.5) K/uL Lymph # (Auto) 1.11 L (1.2-3.4) K/uL [place] # (Auto) 1.01 H (0.24-0.82) K/uL Eos # (Auto) 0.06 (0-0.50) K/uL Baso # (Auto) 0.03 (0-0.2) K/uL Immature Gran # (Auto) 0.04 H (0.00-0.02) K/uL POC Sodium (135-144) mmol/L Sodium 140 (136-145) mmol/L POC Potassium (3.3-5.0) mmol/L Potassium 3.7 (3.5-5.1) mmol/L POC Chloride (101-112) mmol/L Chloride 104 (98-107) mmol/L Carbon Dioxide 28 (21-32) mmol/L POC Total CO2 (24-31) mmol/L Anion Gap 8 (3-11) POC Anion Gap (16-25) mmol/L POC BUN (7-18) mg/dl BUN 11 (6-23) mg/dl Creatinine 1.01 (0.6-1.4) mg/dl POC Creatinine (0.6-1.3) mg/dl Est Cr Clr Drug Dosing 72.4 ml/min Est GFR ( Amer) 91.3 ml/min Est GFR (Non-Af Amer) 78.8 ml/min BUN/Creatinine Ratio 10.9 (10-20) Glucose 163 H (70-99(Fasting)) mg/dl POC Glucose (70-99) mg/dl POC Glucose (other) (70-99) mg/dl Estimat Average Glucose mg/dl Hemoglobin A1c (4.5-5.6) % Calcium 9.6 (8.5-10.1) mg/dl POC Ioniz Calcium [place] (1.12-1.32) mmol/l Magnesium (1.7-2.4) mg/dl Total Bilirubin 0.9 (0.2-1.0) mg/dl AST 12 L (13-39) U/L ALT 10 (7-52) U/L Alkaline Phosphatase 115 H (34-104) U/L Troponin I High Sens 6.7 (0-20) pg/ml Total Protein 7.8 (6.0-8.3) gm/dl Albumin 4.4 (3.4-5.0) gm/dl Globulin 3.4 (2.5-4.0) gm/dl Albumin/Globulin Ratio 1.3 (0.9-2) Lipase 4 L (11-82) U/L Urine Color Urine Appearance (Clear) Urine pH (4.5-7.5) Ur Specific [place] (1.000-1.030) Urine Protein (Negative) Urine Glucose (UA) (Negative) Urine Ketones (Negative) Urine Blood (Negative) Urine Nitrite (Negative) Urine Bilirubin (Negative) Urine Urobilinogen (Negative) Ur Leukocyte Esterase (Negative) SARS-CoV-2, RNA, NAAT (NEGATIVE)
[2022-02-02] MEDS ORDERED: ENALAPRILAT 0.625 MG in SYRINGE 9.5 ML IV ONE (09:37)
[2022-02-02] MEDS ORDERED: MAGNESIUM SULFATE / D5W 1 GM/100 ML BAG IV ONE (11:20)
--- NOTE | 2022-02-02 11:25 | Hospitalist Progress Note ---
Date of Service February 02, 2022 Assessment & Plan (1) Diverticulitis: Plan: - Elevated WBC with CT A/P showing hepatic flexure thickening and intraluminal fluid, possible phlegmon, but without evidence of bowel perforation. - Recommend continuing NPO without sips or ice chips until - can likely advance tomorrow morning - Continue IV Zosyn and IV fluids - appreciate ongoing surgical co-management (2) DM2 (diabetes mellitus, type 2): Plan: - Hold glyburide, place on SSI with accucheks ACHS/q6h while NPO. - A1c 6.8. - Not currently requiring insulin while NPO but likely will need some as his t advances (3) Hypertension: Plan: - Takes 20 mg lisinopril daily at home. - 1.25 mg IV Vasotec Q6h prn for SBP > 160 in setting of adequately controlled pain. (4) Hyperlipidemia: Plan: - On atorvastatin 40 mg at night, hold for now due to n.p.o. status, may resume when patient tolerating p.o. intake. Plan VTE Prophylaxis - Lovenox 40mg SQ daily Disposition - continued admission on med/surg Admission and Anticipated Discharge Date Admission Date: February 01, 2022 Subjective Reports pain improved, down to severity 4/10. No radiation. No longer guarding on palpation. No fever or chills. Currently NPO without ice chips or sips. Review of Systems Review of Systems: All systems reviewed & are unremarkable except as noted in Subjective Physical Exam Constitutional: WD/WN, vitals as above Respiratory: normal respiratory effort, lungs clear to auscultation Cardiovascular: RRR, no murmur, no edema Gastrointestinal (Abdomen): Percussion/Palpation: + abdomen tender (RLQ) and abdomen soft; no guarding and abdomen not rigid Psychiatric: A+Ox3, euthymic affect Results & Data Results & Data ([facility]) Vital Signs (Past 12 Hours) Vital Signs Temp Pulse Pulse Resp BP Pulse Ox O2 Del Method 02/02/22 10:37 163/95 H 02/02/22 09:32 60 157/100 H 02/02/22 08:07 36.9 C 59 L 17 166/97 H 95 Room Air 02/02/22 01:01 65 143/95 H PG Care Time/CCT Total # of Minutes Spent Total Time Spent with Patient: Total time spent is greater than 50% in coordination of care (as documented) at patient's floor/unit and/or counseling patient: Coding Level of Care Code 06012 Subseq Obs Care Lvl 2 Diagnoses Diverticulitis K57.92 DM2 (diabetes mellitus, type 2) E11.9 Hypertension I10 Hyperlipidemia E78.5
[2022-02-02] MEDS ORDERED: LACTATED RINGER'S 1,000 ML IV SCH (12:45)
[2022-02-02] MEDS: POTASSIUM CHLORIDE / WTR 10 MEQ/100 ML PLCT IV SCH ×2 (13:06→15:51)
--- NOTE | 2022-02-02 13:20 | Surgery Progress Note ---
Date of Service February 02, 2022 Assessment & Plan (1) Diverticulitis: Plan: Already improving. WBC improving as well Continue conservative management. No urgent indication for surgical intervention. [facility] surgeons covering for the weekend. (2) DM2 (diabetes mellitus, type 2): Admission and Anticipated Discharge Date Admission Date: February 01, 2022 Subjective Patient seen. Already starting to feel better and has minimal discomfort Physical Exam Constitutional: WD/WN, vitals as above no acute distress and not ill appearing Eyes: PERRL, conjunctivae normal, anicteric sclerae EOM intact bilaterally ENMT: external ear and nose normal, oropharynx normal Ears: no hearing impairment Neck: trachea midline, no thyromegaly Respiratory: normal respiratory effort; no respiratory distress and does not use accessory muscles Cardiovascular: Rate/Rhythm: regular rate and regular rhythm Gastrointestinal (Abdomen): Soft. Mild right-sided tenderness. Improved from yesterday. No guarding Skin: no rashes, warm and dry Psychiatric: Orientation: alert, oriented x 3 and cooperative Results & Data ([facility]) Vital Signs (Past 12 Hours) Vital Signs Temp Pulse Resp BP Pulse Ox O2 Del Method 02/02/22 10:37 163/95 H 02/02/22 09:32 60 157/100 H 02/02/22 08:07 36.9 C 59 L 17 166/97 H 95 Room Air PG Care Time/CCT Total # of Minutes Spent Total Time Spent with Patient: Total time spent is greater than 50% in coordination of care (as documented) at patient's floor/unit and/or counseling patient: Coding Level of Care Code 86293 Subseq Hosp Care Lvl 3 Diagnoses Diverticulitis K57.92 DM2 (diabetes mellitus, type 2) E11.9
[2022-02-02] MEDS: D5W AND LACTATED RINGERS 1,000 ML IV SCH (18:36)
[2022-02-02] MEDS: ENALAPRILAT IV PRN (18:47)
[2022-02-02] MEDS: ENOXAPARIN INJ 40 MG/0.4 ML SYR SQ SCH (21:25)
[2022-02-03] MEDS: D5W AND LACTATED RINGERS 1,000 ML IV SCH ×2 (02:14→09:23)
[2022-02-03] MEDS: PIPERACILLIN/TAZOBACTAM 3.375 GM in DEXTROSE 5% 100 ML IV SCH ×3 (05:13→21:02)
[2022-02-03] MEDS: INSULIN ASPART PER UNIT SC SCH ×4 (06:09→22:35)
[2022-02-03 08:56] LABS: Basophils # (auto) 0.02 K/uL (0-0.2); Basophils % (auto) 0.3 %; Eosinophils # (auto) 0.33 K/uL (0-0.50); Eosinophils % (auto) 5.5 %; Hemoglobin 14.8 g/dl (14.0-18.0); Immature Granulocytes # (auto) 0.01 K/uL (0.00-0.02); Immature Granulocytes % (auto) 0.2 %; Lymphocytes # (auto) 1.34 K/uL (1.2-3.4); Lymphocytes % (auto) 22.4 %; Mean Corpuscular Hemoglobin 29.4 pg (25.0-34.0); Mean Corpuscular Hgb Conc 33.6 g/dL (32.0-36.0); Mean Corpuscular Volume 87.5 fL (80.0-100.0); Monocytes # (auto) 0.59 K/uL (0.24-0.82); Monocytes % (auto) 9.8 %; Neutrophils % (auto) 61.8 %; Platelet Count 215 K/uL (130-400); RDW Coefficient of Variation 12.1 % (11.5-14.5); Red Blood Count 5.03 M/uL (4.63-6.08); White Blood Count 5.99 K/ul (4.8-10.8)
[2022-02-03 09:25] LABS: BUN Creatinine Ratio 7.3 (10-20); Calcium 8.9 mg/dl (8.5-10.1); Creatinine Clr Calc Pharmacy 74.7 ml/min; Est GFR (African American) 97.1 ml/min; Est GFR (Non-African American) 83.8 ml/min; Potassium 3.7 mmol/L (3.5-5.1)
--- NOTE | 2022-02-03 10:13 | Surgery Progress Note ---
Date of Service February 03, 2022 Assessment & Plan (1) Diverticulitis: Plan: Improving on IV antibiotics. Will start clears today and advance to full liquids if tolerates. Admission and Anticipated Discharge Date Admission Date: February 01, 2022 Subjective Feeling better. Minimal pain in the right lower abdomen. Hungry. Bowels functioning. Review of Systems Review of Systems: All systems reviewed & are unremarkable except as noted in HPI & below Physical Exam Constitutional: WD/WN, vitals as above Eyes: PERRL, conjunctivae normal, anicteric sclerae Respiratory: normal respiratory effort, lungs clear to auscultation Cardiovascular: RRR, no murmur, no edema Gastrointestinal (Abdomen): Inspection/Auscultation: abdomen normal to inspection and normal bowel sounds; abdomen not distended Percussion/Palpation: + abdomen tender (very mild in right lower quadrant) and abdomen soft; no guarding Neurologic: awake; no focal motor deficits Psychiatric: A+Ox3, euthymic affect Results & Data ([facility]) Vital Signs (Past 12 Hours) Vital Signs Temp Pulse Pulse Resp BP Pulse Ox O2 Del Method 02/03/22 09:41 36.6 C 55 L 17 175/103 H 98 Room Air 02/03/22 07:39 Room Air 02/02/22 23:48 58 L 151/97 H Laboratory Results Abnormal lab results 02/02/22 02/02/22 02/02/22 Range/Units 18:10 18:12 18:51 BUN/Creatinine Ratio (10-20) Glucose (70-99(Fasting)) mg/dl POC Glucose 61 L* 57 L* 119 H (70-99) mg/dl 02/02/22 02/03/22 02/03/22 Range/Units 23:39 05:52 08:49 BUN/Creatinine Ratio 7.3 L (10-20) Glucose 175 H (70-99(Fasting)) mg/dl POC Glucose 123 H 170 H (70-99) mg/dl
[2022-02-03] MEDS ORDERED: Nursing to Pharmacy Communication SCH (10:30)
[2022-02-03] MEDS ORDERED: ENALAPRILAT IV PRN (11:15)
[2022-02-03] MEDS: ENALAPRILAT IV PRN (11:21)
--- NOTE | 2022-02-03 12:23 | Hospitalist Progress Note ---
Date of Service February 03, 2022 Assessment & Plan (1) Diverticulitis: Plan: - Elevated WBC with CT A/P showing hepatic flexure thickening and intraluminal fluid, possible phlegmon, but without evidence of bowel perforation. - Increased to clear liquids today by surgery - appears to be tolerating this fine. Suspect can be discharged tomorrow on full liquid diet. - Continue IV Zosyn and IV fluids - appreciate ongoing surgical co-management - Follow up colonoscopy in 4-6 weeks (2) DM2 (diabetes mellitus, type 2): Plan: - Hold glyburide, place on SSI with accucheks ACHS/q6h while NPO. - A1c 6.8. - Not currently requiring insulin while NPO but likely will need some as his diet advances (3) Hypertension: Plan: - Takes 20 mg lisinopril daily at home. - 1.25 mg IV Vasotec Q6h prn for SBP > 160 in setting of adequately controlled pain, can likely restart lisinopril tomorrow (4) Hyperlipidemia: Plan: - On atorvastatin 40 mg at night, hold for now due to n.p.o. status, may resume when patient tolerating full liquids Plan VTE Prophylaxis - Lovenox 40mg SQ daily Disposition - continued admission on med/surg Admission and Anticipated Discharge Date Admission Date: February 01, 2022 Subjective Very mild RLQ pain. No nausea or vomiting. Feeling hungry. Tolerating clear liquid diet without increase in pain. Review of Systems Review of Systems: All systems reviewed & are unremarkable except as noted in Subjective Physical Exam Constitutional: WD/WN, vitals as above Gastrointestinal (Abdomen): Inspection/Auscultation: normal bowel sounds Percussion/Palpation: + abdomen tender (mild RLQ) and abdomen soft; no guarding and abdomen not rigid Results & Data Results & Data ([facility]) Vital Signs (Past 12 Hours) Vital Signs Temp Pulse Resp BP Pulse Ox O2 Del Method 02/03/22 12:09 57 L 173/109 H 02/03/22 11:20 58 L 170/113 H 97 Room Air 02/03/22 09:41 36.6 C 55 L 17 175/103 H 98 Room Air 02/03/22 07:39 Room Air PG Care Time/CCT Total # of Minutes Spent Total Time Spent with Patient: Total time spent is greater than 50% in coordination of care (as documented) at patient's floor/unit and/or counseling patient: Coding Level of Care Code 66480 Subseq Hosp Care Lvl 1 Diagnoses Diverticulitis K57.92 DM2 (diabetes mellitus, type 2) E11.9 Hypertension I10 Hyperlipidemia E78.5
[2022-02-03] MEDS: LACTATED RINGER'S 1,000 ML IV SCH (13:28)
[2022-02-03] MEDS: ENOXAPARIN INJ 40 MG/0.4 ML SYR SQ SCH (21:02)
[2022-02-03] MEDS ORDERED: HYDROCORTISONE HC 2.5% CRM 30GM TUBE EXT PRN (23:07)
[2022-02-04] MEDS: LACTATED RINGER'S 1,000 ML IV SCH ×2 (02:07→05:20)
[2022-02-04] MEDS: PIPERACILLIN/TAZOBACTAM 3.375 GM in DEXTROSE 5% 100 ML IV SCH (05:20)
[2022-02-04] MEDS: INSULIN ASPART PER UNIT SC SCH ×2 (09:22→12:56)
--- NOTE | 2022-02-04 11:51 | Surgery Progress Note ---
Date of Service February 04, 2022 Assessment & Plan (1) Diverticulitis: Plan: Improved on IV antibiotics. Agree with advancement of diet. Stable for discharge from surgery standpoint. Admission and Anticipated Discharge Date Admission Date: February 03, 2022 Subjective Tolerated advancement in diet without any increase in abdominal pain. Did have some bright red blood from rectum with his bowel movement -has known hemorrhoids and this has occurred before. No bleeding now. Physical Exam Constitutional: WD/WN, vitals as above Eyes: PERRL, conjunctivae normal, anicteric sclerae Gastrointestinal (Abdomen): Inspection/Auscultation: abdomen normal to inspection and normal bowel sounds; abdomen not distended Percussion/Palpation: abdomen soft; abdomen nontender and no guarding Neurologic: awake; no focal motor deficits Psychiatric: A+Ox3, euthymic affect Results & Data ([facility]) Vital Signs (Past 12 Hours) Vital Signs Temp Pulse Resp BP Pulse Ox O2 Del Method 02/04/22 07:25 36.6 C 89 16 159/100 H 93 Room Air
--- NOTE | 2022-02-04 12:44 | Discharge Summary ---
Date of Service February 04, 2022 Admission HPI Per Admitting Provider Jordy Mercer is a 61-year-old male with a past medical history significant for hypertension, hyperlipidemia, and diabetes who presents today with abdominal pain. 2 days ago, he consumed spicy sausage and 2 hours later developed a knot- like pain in his upper central abdomen. Over the past 2 days, as it become more severe and has moved into his lower right abdomen. He had an episode of nonbloody, watery stool last evening and had felt very warm this morning, however denies fevers/chills, nausea, vomiting, constipation, melena, hematochezia. Pain is throbbing and worse with p.o. intake, specifically noting that it got worse after he took his blood pressure medication this morning, also worsened by IV morphine given in ED, made it feel like his abdomen was "on fire ". He had his gallbladder removed years ago, otherwise no surgeries, no history of diverticulitis or GI cancers. No one else at the [facility] who ate the present appears to be ill. In ED, is an elevated white blood cell count, elevated blood sugar, otherwise labs largely unremarkable. CT A/P shows thickening of the bowel at the hepatic flexure suggestive of diverticulitis. There is concern for possible phlegmon, but no evidence of pneumoperitoneum or perforation. Principal Diagnosis Acute diverticultitis Discharge Exam Constitutional WD/WN, vitals as above Respiratory normal respiratory effort, lungs clear to auscultation Cardiovascular RRR, no murmur, no edema Gastrointestinal (Abdomen) Inspection/Auscultation: normal bowel sounds Percussion/Palpation: abdomen soft; abdomen nontender, no guarding and abdomen not rigid Psychiatric A+Ox3, euthymic affect Discharge Data Allergies Allergy/AdvReac Type Severity Reaction Status Date / Time No Known Allergies Allergy Unverified 02/01/22 11:33 Consultations 02/01/22 11:36 Consult General Surgery Stat 02/01/22 12:05 ED Decision to Admit Stat 02/01/22 20:15 Consult Gastroenterology Routine Ordered Studies 02/01/22 10:01 CT abd pelvis IV con only Stat IMPRESSION: Hepatic flexure wall thickening and fat stranding are suggestive of acute diverticulitis without evidence of perforation. Given the degree of wall thickening, however, follow-up colonoscopy is recommended to exclude underlying carcinoma. Hospital Course (1) Diverticulitis: Jordy Mercer is a 61 year old male admitted to [facility] from February 01 - 2021 due to abdominal pain. He was diagnosed with acute diverticulitis treated with intravenous Zosyn and bowel rest. He did well with no complication during his hospital stay and diet was slowly advanced and he is now tolerating a low fiber diet. He should continue this diet for 4 weeks. Ant ibiotics have been switched to oral Augmentin for a total course of 14 days (11 further days). Please arrange for a follow up colonoscopy in 4-6 weeks. His HbA1C was checked at 6.8, therefore no changes to his diabetic regimen were made. On day of discharge he had some bleeding from a hemorrhoid. Suspect this was exacerbated by Lovenox use. Recommend using anusol cream as needed for this. (2) DM2 (diabetes mellitus, type 2): (3) Hypertension: (4) Hyperlipidemia: Total Time Total Time Spent Total Time Spent (In Minutes): 35 (including hand over to [facility]) Discharge Plan Discharge Items [facility] Reason For Visit: DIVERTICULITIS Discharge Diagnosis: Acute diverticulitis Activity: Per Instructions section Non-emergency contact: Primary Care Provider Call non-emergency contact if: you have any medication questions and your symptoms worsen Follow-up/Referrals: Heaven LINDSEY [Primary Care Provider] - Diet: Carb Consistent or DM2 and Low Fiber Addtl Attending Provider Instructions: You were admitted to [facility] from February 01 - 2021 due to abdominal pain. You were diagnosed with acute diverticulitis treated with intravenous antibiotics and bowel rest. Your bowel regimen was slowly increased and you are now tolerating a low fiber diet - please continue this for 4 weeks. Your antibiotics have been switched to oral Augmentin for a total course of 14 days (11 further days). Please increase activity gradually as tolerated. Please follow up with colonoscopy in 4-6 weeks. You diabetes is well controlled on current medication with HbA1C 6.8. No changes to your diabetes medication were made. On day of discharge you have some bleeding from a hemorrhoid. Recommend using anusol cream as needed for this. Pending Studies at Discharge: No Stand-Alone Forms: My [facility] Skilled Items Patient informed of condition?: Yes Discharge Level of Care: Other Communicable Disease: No Discharge Prognosis: Stable Lines: None Urinary Catheter: No Medications and DC Order Prescriptions: New amoxicillin-pot clavulanate 875-125 mg tablet 1 tab PO BID 11 Days Qty: 22 0RF Continued atorvastatin 20 mg Tablet 20 mg PO HS glyburide 5 mg Tablet 5 mg PO BID glyburide 2.5 mg Tablet 2.5 mg PO BID Rx Instructions: take 1 tab twice a day with 5mg for a total of 7.5mg twice per day lisinopril 20 mg Tablet 20 mg PO DAILY aspirin 81 mg Tablet,Delayed Release (Dr/Ec) 81 mg PO DAILY calcium polycarbophil [Fiber-Lax] 625 mg Tablet 1,250 mg PO BID Discharge Orders: Discharge Order (Routine); Ordered 02/04/22 Ordered By: Ralph Dominique/Other Patient Handouts: Low-Fiber Diet Admission Data Admit Date/Time: 02/03/22 12:23 Attending Provider: Ralph Barnes Admit Provider: Ralph Barnes Primary Care Provider: Heaven LINDSEY Other Providers: Bigg Greenwood ; Ralph Barnes ; Naya Steinberg Other Interventions: Discharge Summary Assessment (RN) Last Done: 02/04/22 13:55 Coding Level of Care Code D/C DAY MANAGEMENT >30 MINS Diagnoses Diverticulitis K57.92 DM2 (diabetes mellitus, type 2) E11.9 Hypertension I10 Hyperlipidemia E78.5
== END 2022-02-04 15:09 | DRG 392 ==
LOC: ED 09:48 → 3E 09:48